=== PATIENT | female | born 1995 | race Caucasian/White ===

== ENCOUNTER 2018-03-30 16:31 | Inpatient (IN) | payer MEDICAID ==
--- NOTE | 2018-03-30 16:55 | CPEKG ---
Heart Rate: 118 RR Interval: 508 P-R Interval: 140 QRSD Interval: 90 QT Interval: 324 QTC Interval: 455 P [place]: 51 QRS [place]: 29 T Wave [place]: 7 EKG Severity - BORDERLINE ECG - EKG Impression: SINUS TACHYCARDIA EKG Impression: BORDERLINE T ABNORMALITIES, ANTERIOR LEADS Electronically Signed By: Bryson Talyor 30-Mar-2018 20:29:41
[2018-03-30] MEDS ORDERED: NS 1,000 ML IV ONE (16:58)
--- NOTE | 2018-03-30 16:58 | EDPHY ---
HPI/HX/ROS/PE/MDM Narrative: CHIEF COMPLAINT: Abdominal pain, constipation HPI: The patient is a 22 y/o female complaining of abdominal pain and constipation onset 3 days ago. She had nausea, decreased appetite, and constipation for 2 days. The constipation improved yesterday after taking Miralax. Today the abdominal pain moved to her upper abdomen. She denies history of abdominal surgery. She also woke up with red, swollen, and painful hands. She denies using new shampoo or lotion. She did take an Adderall this morning as she was concerned about working with her current symptoms. Denies chest pain, heart palpitations, shortness of breath, urinary complaints, fever, numbness, paresthesias, fever. REVIEW OF SYSTEMS: Aside from elements discussed in the HPI, a comprehensive 10-point review of systems was reviewed and is negative. PMH: Denies SOCIAL HISTORY: Employed with [employer], single, lives in [place]. Admits to daily alcohol use. PHYSICAL EXAM: General: Patient is alert, in no acute distress. ENT: Eyes are normal to inspection. ENT inspection normal. Neck: Normal inspection. Full range of motion. Respiratory: No respiratory distress. Breath sounds normal bilaterally. Cardiovascular: Regular rate and rhythm. Strong peripheral pulses. Normal cap refill. Abdomen: Moderate diffuse abdominal tenderness to palpation. There are no peritoneal signs. There are normal bowel sounds. Back: Normal to inspection. No tenderness to palpation. Skin: Bilateral hand erythema involving 3cm of volar wrists, multiple linear scars on arms from cutting. Warm and dry. Extremities: Normal appearance. Full range of motion. Neuro: Oriented x3. Normal motor function. Normal sensory function. ED Course: 1651: EKG was ordered and interpreted by myself as sinus tachycardia with a rate of 118. Please see [email or web address] system for official reading. 0: Patient's abdominal x-ray reveals a small amount of free fluid. Limited abdominal US ordered. 1835: I reviewed patient's labs, elevated lipase noted -will need to be admitted. 1930: Reassessed patient and discussed laboratory and imaging findings. She is comfortable with plan for admission. 1940: Spoke with radiologist who reports that the abdominal US reveals diffuse fatty infiltration of the liver, but there are no acute findings. 1950: Consulted with hospitalist service, Dr. Lake accepts admission of this patient. - Data Points Imaging Results: Imaging Impressions Abdomen X-Ray 03/30/18 16:58 Impression: Nonspecific scattered small air-fluid levels. Query ileus. Abdomen Ultrasound 03/30/18 18:36 Impression: 1. No acute findings in the abdomen. 2. Diffuse fatty infiltration of the liver. Findings discussed with Bryson Taylor M.D., on March 30, 2018 at 1941. Imaging: I viewed and interpreted images myself Laboratory Results: Laboratory Results 03/30/18 17:20 03/30/18 17:20 03/30/18 03/30/18 03/30/18 19:50 17:20 17:20 WBC RBC Hgb Hct MCV MCH MCHC RDW Plt Count MPV Neut % (Auto) Lymph % (Auto) [place] % (Auto) Eos % (Auto) Baso % (Auto) Nucleat RBC Rel Count Absolute Neuts (auto) Absolute Lymphs (auto) Absolute Monos (auto) Absolute Eos (auto) Absolute Basos (auto) Absolute Nucleated RBC Immature Gran % Immature Gran # Sodium 133 mEq/L L mEq/L (135-145) Potassium 3.5 mEq/L mEq/L (3.3-5.0) Chloride 101 mEq/L mEq/L (97-110) Carbon Dioxide 19 mEq/l L mEq/l (22-31) Anion Gap 13 mEq/L mEq/L (8-16) BUN 5 mg/dL L mg/dL (7-23) Creatinine 0.7 mg/dL mg/dL (0.6-1.0) Estimated GFR > 60 Glucose 101 mg/dL H mg/dL (70-100) Calcium 10.1 mg/dL mg/dL (8.5-10.4) Total Bilirubin 0.8 mg/dL mg/dL (0.1-1.4) Conjugated Bilirubin 0.4 mg/dL mg/dL (0.0-0.5) Unconjugated Bilirubin 0.4 mg/dL mg/dL (0.0-1.1) AST 32 IU/L IU/L (14-46) ALT 45 IU/L IU/L (9-52) Alkaline Phosphatase 109 IU/L IU/L (38-126) Total Protein 6.7 g/dL g/dL (6.3-8.2) Albumin 3.7 g/dL g/dL (3.5-5.0) Lipase 9701 IU/L H IU/L (23-300) Beta HCG, Qual NEGATIVE Urine Color YELLOW Urine Appearance CLEAR Urine pH 6.0 (5.0-7.5) Ur Specific [place] 1.002 (1.002-1.030) Urine Protein NEGATIVE (NEGATIVE) Urine Ketones NEGATIVE (NEGATIVE) Urine Blood NEGATIVE (NEGATIVE) Urine Nitrate NEGATIVE (NEGATIVE) Urine Bilirubin NEGATIVE (NEGATIVE) Urine Urobilinogen NEGATIVE EU EU (0.2-1.0) Ur Leukocyte Esterase NEGATIVE (NEGATIVE) Urine Glucose NEGATIVE (NEGATIVE) 03/30/18 17:20 WBC 13.32 10^3/uL H 10^3/uL (3.80-9.50) RBC 5.17 10^6/uL 10^6/uL (4.18-5.33) Hgb 15.0 g/dL g/dL (12.6-16.3) Hct 43.1 % % (38.0-47.0) MCV 83.4 fL fL (81.5-99.8) MCH 29.0 pg pg (27.9-34.1) MCHC 34.8 g/dL g/dL (32.4-36.7) RDW 13.5 % % (11.5-15.2) Plt Count 212 10^3/uL 10^3/uL (150-400) MPV 11.7 fL fL (8.7-11.7) Neut % (Auto) 82.5 % H % (39.3-74.2) Lymph % (Auto) 6.8 % L % (15.0-45.0) [place] % (Auto) 6.4 % % (4.5-13.0) Eos % (Auto) 3.1 % % (0.6-7.6) Baso % (Auto) 0.6 % % (0.3-1.7) Nucleat RBC Rel Count 0.0 % % (0.0-0.2) Absolute Neuts (auto) 11.00 10^3/uL H 10^3/uL (1.70-6.50) Absolute Lymphs (auto) 0.90 10^3/uL L 10^3/uL (1.00-3.00) Absolute Monos (auto) 0.85 10^3/uL H 10^3/uL (0.30-0.80) Absolute Eos (auto) 0.41 10^3/uL H 10^3/uL (0.03-0.40) Absolute Basos (auto) 0.08 10^3/uL 10^3/uL (0.02-0.10) Absolute Nucleated RBC 0.00 10^3/uL 10^3/uL (0-0.01) Immature Gran % 0.6 % % (0.0-1.1) Immature Gran # 0.08 10^3/uL 10^3/uL (0.00-0.10) Sodium Potassium Chloride Carbon Dioxide Anion Gap BUN Creatinine Estimated GFR Glucose Calcium Total Bilirubin Conjugated Bilirubin Unconjugated Bilirubin AST ALT Alkaline Phosphatase Total Protein Albumin Lipase Beta HCG, Qual Urine Color Urine Appearance Urine pH Ur Specific [place] Urine Protein Urine Ketones Urine Blood Urine Nitrate Urine Bilirubin Urine Urobilinogen Ur Leukocyte Esterase Urine Glucose Medications Given: Discontinued Medications Sodium Chloride (Ns) 1,000 mls @ 0 mls/hr IV EDNOW ONE; Wide Open PRN Reason: Protocol Stop: 03/30/18 16:59 Last Admin: 03/30/18 17:53 Dose: 1,000 mls General Time Seen by Provider: 03/30/18 16:48 Initial Vital Signs: Initial Vital Signs Temperature (C) 36.5 C 03/30/18 16:42 Heart Rate 266 H 03/30/18 16:42 Respiratory Rate 20 03/30/18 16:42 Blood Pressure 113/80 03/30/18 16:42 O2 Sat (%) 99 03/30/18 16:42 O2 Delivery Mode Room Air Allergies/Adverse Reactions: No Known Allergies Allergy (Verified 03/30/18 16:41) Home Medications: Medication Instructions Recorded NK [No Known Home Meds] 03/30/18 Departure - Departure Disposition: [facility] Inpatient Acute Clinical Impression: Rash Abdominal pain Qualifiers: Abdominal location: generalized Qualified Code(s): R10.84 - Generalized abdominal pain Pancreatitis Qualifiers: Chronicity: acute Pancreatitis type: other Acute pancreatitis complication: unspecified Qualified Code(s): K85.80 - Other acute pancreatitis without necrosis or infection Condition: Fair Report Scribed for: Bryson Taylor Report Scribed by: Kimber Grewal Date of Report: 03/30/18 Time of Report: 16:57 Physician Review and Approval Statement: Portions of this note were transcribed by an ED scribe. I personally performed the history, physical exam, and medical decision making; and confirm the accuracy of the information in the transcribed note.
[2018-03-30 17:30] LABS: PLATELET COUNT 212 10^3/uL (150-400)
[2018-03-30] MEDS ORDERED: KETOROLAC 15 MG/1 ML SDV IVP ONE ×2 (21:01→21:02)
[2018-03-30] MEDS ORDERED: ONDANSETRON 4 MG/2 ML VIAL IVP PRN (22:36)
[2018-03-30] MEDS ORDERED: ONDANSETRON DISINTEGRATING 4 MG TAB PO PRN (22:36)
[2018-03-30] MEDS: NS W/ 20 KCl/L 1,000 ML IV SCH (23:27)
[2018-03-30] MEDS: oxyCODONE IR 5 MG TAB PO PRN (23:38)
--- NOTE | 2018-03-31 01:17 | PDGENHP ---
History and Physical - Chief Complaint Abdominal pain - History of Present Illness 22 yo F w/ no significant PMHx p/w abdominal pain. Patient reports epi-gastric pain and nausea for 3 days prior to admission. During this period she has been unable to tolerate PO intake. The pain worsened significantly today so she came to the ED. Patient seems hesitant to reveal the extent of her alcohol use. She tells me she drinks daily and will only quantify it as "too much". Abdominal U/ S notable only for fatty liver. Noted elevated lipase patient is being admitted for treatment of alcoholic pancreatitis. History Information - Allergies/Home Medication List Allergies/Adverse Reactions: No Known Allergies Allergy (Verified 03/30/18 16:41) Home Medications: NK [No Known Home Meds] 03/30/18 [Last Taken Unknown] I have personally reviewed and updated: family history, medical history - Past Medical History no pertinent PMH - Surgical History Reports: no pertinent surgical hx - Family History Additional family history: Denies family hx of pancreatitis - Social History Smoking Status: Current every day smoker Review of Systems Review of Systems: ROS: 10pt was reviewed & negative except for what was stated in HPI & below Physical Exam Physical Exam: Temp Pulse Resp BP Pulse Ox 36.8 C 111 H 16 120/80 93 03/30/18 23:45 03/31/18 00:53 03/31/18 00:53 03/31/18 00:53 03/31/18 00:53 Constitutional: no apparent distress, not in pain Eyes: PERRL, EOMI Ears, Nose, Mouth, Throat: moist mucous membranes, no oral mucosal ulcers Cardiovascular: regular rate and rhythym, no murmur, rub, or gallop Respiratory: no respiratory distress, clear to auscultation Gastrointestinal: normoactive bowel sounds, tenderness (Epi-gastric), No guarding, No rebound, No distension Skin: warm, normal color Musculoskeletal: full muscle strength, no muscle tenderness Neurologic: AAOx3, CN II-XII Intact Psychiatric: interacting appropriately, not anxious Lab Data & Imaging Review 03/30/18 17:20 03/30/18 17:20 WBC 13.32 10^3/uL (3.80-9.50) H 03/30/18 17:20 RBC 5.17 10^6/uL (4.18-5.33) 03/30/18 17:20 Hgb 15.0 g/dL (12.6-16.3) 03/30/18 17:20 Hct 43.1 % (38.0-47.0) 03/30/18 17:20 MCV 83.4 fL (81.5-99.8) 03/30/18 17:20 MCH 29.0 pg (27.9-34.1) 03/30/18 17:20 MCHC 34.8 g/dL (32.4-36.7) 03/30/18 17:20 RDW 13.5 % (11.5-15.2) 03/30/18 17:20 Plt Count 212 10^3/uL (150-400) 03/30/18 17:20 MPV 11.7 fL (8.7-11.7) 03/30/18 17:20 Neut % (Auto) 82.5 % (39.3-74.2) H 03/30/18 17:20 Lymph % (Auto) 6.8 % (15.0-45.0) L 03/30/18 17:20 [place] % (Auto) 6.4 % (4.5-13.0) 03/30/18 17:20 Eos % (Auto) 3.1 % (0.6-7.6) 03/30/18 17:20 Baso % (Auto) 0.6 % (0.3-1.7) 03/30/18 17:20 Nucleat RBC Rel Count 0.0 % (0.0-0.2) 03/30/18 17:20 Absolute Neuts (auto) 11.00 10^3/uL (1.70-6.50) H 03/30/18 17:20 Absolute Lymphs (auto) 0.90 10^3/uL (1.00-3.00) L 03/30/18 17:20 Absolute Monos (auto) 0.85 10^3/uL (0.30-0.80) H 03/30/18 17:20 Absolute Eos (auto) 0.41 10^3/uL (0.03-0.40) H 03/30/18 17:20 Absolute Basos (auto) 0.08 10^3/uL (0.02-0.10) 03/30/18 17:20 Absolute Nucleated RBC 0.00 10^3/uL (0-0.01) 03/30/18 17:20 Immature Gran % 0.6 % (0.0-1.1) 03/30/18 17:20 Immature Gran # 0.08 10^3/uL (0.00-0.10) 03/30/18 17:20 Sodium 133 mEq/L (135-145) L 03/30/18 17:20 Potassium 3.5 mEq/L (3.3-5.0) 03/30/18 17:20 Chloride 101 mEq/L (97-110) 03/30/18 17:20 Carbon Dioxide 19 mEq/l (22-31) L 03/30/18 17:20 Anion Gap 13 mEq/L (8-16) 03/30/18 17:20 BUN 5 mg/dL (7-23) L 03/30/18 17:20 Creatinine 0.7 mg/dL (0.6-1.0) 03/30/18 17:20 Estimated GFR > 60 03/30/18 17:20 Glucose 101 mg/dL (70-100) H 03/30/18 17:20 Calcium 10.1 mg/dL (8.5-10.4) 03/30/18 17:20 Total Bilirubin 0.8 mg/dL (0.1-1.4) 03/30/18 17:20 Conjugated Bilirubin 0.4 mg/dL (0.0-0.5) 03/30/18 17:20 Unconjugated Bilirubin 0.4 mg/dL (0.0-1.1) 03/30/18 17:20 AST 32 IU/L (14-46) 03/30/18 17:20 ALT 45 IU/L (9-52) 03/30/18 17:20 Alkaline Phosphatase 109 IU/L (38-126) 03/30/18 17:20 Total Protein 6.7 g/dL (6.3-8.2) 03/30/18 17:20 Albumin 3.7 g/dL (3.5-5.0) 03/30/18 17:20 Lipase 9701 IU/L (23-300) H 03/30/18 17:20 Beta HCG, Qual NEGATIVE 03/30/18 17:20 Urine Color YELLOW 03/30/18 19:50 Urine Appearance CLEAR 03/30/18 19:50 Urine pH 6.0 (5.0-7.5) 03/30/18 19:50 Ur Specific [place] 1.002 (1.002-1.030) 03/30/18 19:50 Urine Protein NEGATIVE (NEGATIVE) 03/30/18 19:50 Urine Ketones NEGATIVE (NEGATIVE) 03/30/18 19:50 Urine Blood NEGATIVE (NEGATIVE) 03/30/18 19:50 Urine Nitrate NEGATIVE (NEGATIVE) 03/30/18 19:50 Urine Bilirubin NEGATIVE (NEGATIVE) 03/30/18 19:50 Urine Urobilinogen NEGATIVE EU (0.2-1.0) 03/30/18 19:50 Ur Leukocyte Esterase NEGATIVE (NEGATIVE) 03/30/18 19:50 Urine Glucose NEGATIVE (NEGATIVE) 03/30/18 19:50 Imaging Review: Imaging Impressions Abdomen X-Ray 03/30/18 16:58 Impression: Nonspecific scattered small air-fluid levels. Query ileus. Abdomen Ultrasound 03/30/18 18:36 Impression: 1. No acute findings in the abdomen. 2. Diffuse fatty infiltration of the liver. Findings discussed with Bryson Taylor M.D., on March 30, 2018 at 1941. Visualized and Interpreted EKG results: Yes EKG Interpretation: Positive for: normal sinsus rhythm, NS ST wave abnormalities , other (Sinus tach) Assessment & Plan Assessment: 22 yo F p/w ETOH pancreatitis. Plan: 1. Acute pancreatitis - 2/2 ETOH; abdominal U/S notable for fatty liver. Lipase >9000 on admission. - Admit for observation - NPO, ADAT - mIVF, pain control, anti-emetics - Counseled ETOH cessation - Discussed case w/ Dr. Lake Diet - NPO, ADAT Code - Full Ppx - Low risk Dispo - Admit under observation status
[2018-03-31] MEDS: oxyCODONE IR 5 MG TAB PO PRN ×3 (03:29→20:28)
[2018-03-31 05:24] LABS: PLATELET COUNT 169 10^3/uL (150-400)
[2018-03-31] MEDS: NS W/ 20 KCl/L 1,000 ML IV SCH ×3 (06:44→21:30)
--- NOTE | 2018-03-31 16:40 | HOSPPROG ---
Hospitalist Progress Note Assessment/Plan: Assessment: 22-year-old female presents with acute alcohol induced pancreatitis complicated by acute ileus Plan: 1. Acute pancreatitis. Alcohol induced, evidenced by lipase of 9700, midepigastric tenderness, alcohol abuse, tachycardia -counseled patient regarding the etiology pancreatitis, future dietary recommendations, recommendation for complete alcohol cessation -continue IV normal saline, increase to 150cc an hour given that she continues to experience tachycardia -currently attempting to manage pain with oxycodone, nausea with antiemetics -tolerated clear liquid diet, advanced to light diet and gauge effect 2. Alcohol abuse. Chronic, resulting in above, recommend complete cessation -ultrasound demonstrating fatty liver disease, likely secondary to chronic alcohol abuse -no evidence of alcohol withdrawal -social work consultation appreciated, patient desires sobriety 3. Acute ileus. Present on abdominal x-ray, personally interpreted, most likely secondary to localized inflammation from her pancreatitis -continue monitor for flatus, bowel movements -advanced diet carefully as above 4. Acute hyponatremia. Secondary to reduced renal perfusion in setting of poor oral intake, received normal saline, resolved 5. Acute metabolic acidosis. Serum bicarbonate level 18, most likely secondary to vomiting, continue to monitor serum bicarbonate level and continue IV fluids 6. Suspected underlying mood and/or personality disorder. Patient with evidence of bilateral cut robert on upper extremities and lower extremities, patient endorses that these have been mood related in the past -she certainly rib could benefit from an outpatient mental health provider, recommend the patient establish mental health care through referral from her primary care office Diet. Clears, advanced to light diet Prophylaxis. Low risk patient, SCDs Code. Full Disposition. Anticipated discharge is uncertain this time, upgraded to inpatient admission status for reasonable medical necessity including failure to respond to outpatient management of acute pancreatitis, requiring ongoing IV fluids and careful advancement of diet in the setting of ongoing tachycardia, ongoing metabolic acidosis. Will establish patient with primary care provider at [facility]. Subjective: Patient reports some ongoing midepigastric pain, no bowel movement, thirsty Objective: Vital Signs Temp Pulse Resp BP Pulse Ox 35.9 C L 115 H 16 131/85 H 95 03/31/18 13:17 03/31/18 13:17 03/31/18 13:17 03/31/18 13:17 03/31/18 13:17 Laboratory Results 03/31/18 05:10 03/31/18 05:10 03/30/18 03/31/18 04/01/18 05:59 05:59 05:59 Intake Total 900 Balance 900 - Time Spent With Patient Time Spent with Patient: greater than 35 minutes Time Spent with Patient: Greater than 35 minutes spent on this patients care, greater than 50% of time spent counseling, educating, and coordinating care regarding the above mentioned plan. - Physical Exam Constitutional: no apparent distress, uncomfortable, No not in pain (Mild, level 3), No chronically ill appearing Cardiovascular: tachycardia, No systolic murmur, No irregularly irregular, No edema Respiratory: no respiratory distress, no rales or rhonchi, clear to auscultation Gastrointestinal: tenderness (Midepigastric), guarding (Voluntary in the mid epigastric area), distension (Mild), No normoactive bowel sounds (Hypoactive bowel sounds) Skin: warm, other (Healed cutting robert bilateral forearms) Neurologic: AAOx3, other (No upper extremity tremulousness), No asterixes Psychiatric: interacting appropriately, not anxious, not encephalopathic, thought process linear ICD10 Worksheet Patient Problems: Problems Problem Status Onset Rash Acute Abdominal pain Acute Pancreatitis Acute
--- NOTE | 2018-03-31 16:47 | ASMTCMCOM ---
CM Note CM Note Notes: Sw requested for 22 y/o admitted for ETOH-related pancreatitis. Met with pt to discuss her drinking and offer resources and support. Pt stated her mother is very supportive toward her quitting. She is hoping that Sw can meet pt's mother tomorrow. She stated that her mother is hoping to set pt up with a therapist. Discussed AA with pt and she would consider it. She feels at this point that she never wants to drink again. However, she is aware that it will be difficult when gets back to her friends and habits. Gave pt the packet of area resources for alcoholism and helpful articles about drinking. Will meet with pt again tomorrow to set her up with a PCP and talk with her mother. Date Signed: 03/31/2018 04:46 PM Electronically Signed By:Lina Naylor LCSW
--- NOTE | 2018-03-31 18:46 | PDMN ---
Medical Necessity Medical necessity: change to IP; los>2mn for acute pancreatitis, etoh induced, acute ileus, hyponatremia, and metabolic acidosis; requires IVF, and careful advancement of diet; per order and progress note 03/31/18
[2018-04-01] MEDS: oxyCODONE IR 5 MG TAB PO PRN ×5 (00:12→22:58)
[2018-04-01] MEDS: NS W/ 20 KCl/L 1,000 ML IV SCH ×4 (04:02→21:34)
[2018-04-01] MEDS: LORazepam 0.5 MG TAB PO PRN (14:22)
--- NOTE | 2018-04-01 16:25 | HOSPPROG ---
Hospitalist Progress Note Assessment/Plan: Assessment: 22-year-old female presents with acute alcohol induced pancreatitis complicated by acute ileus Plan: 1. Acute pancreatitis. Alcohol induced, evidenced by lipase of 9700, midepigastric tenderness, alcohol abuse, tachycardia persists 120s -continue IV normal saline, increase to 200cc an hour given that she continues to experience tachycardia and likely has an ongoing pro-inflammatory component/ unresolved pancreatitis -currently attempting to manage pain with oxycodone, nausea with antiemetics -discomfort/bloating w/ PO intake, de-escalating diet if needed but can continue to attempt light if hungry 2. Alcohol abuse. Chronic, resulting in above, recommend complete cessation, no e/o withdraw -ultrasound demonstrating fatty liver disease, likely secondary to chronic alcohol abuse -no evidence of alcohol withdrawal -social work consultation appreciated, patient desires sobriety 3. Acute ileus. Present on abdominal x-ray, personally interpreted, most likely secondary to localized inflammation from her pancreatitis -advanced diet carefully as above 4. Acute hyponatremia. Secondary to reduced renal perfusion in setting of poor oral intake, received normal saline, resolved 5. Acute metabolic acidosis. Serum bicarbonate level 18, most likely secondary to vomiting, continue to monitor serum bicarbonate level and continue IV fluids -recheck in AM 6. Suspected underlying mood and/or personality disorder. Patient with evidence of bilateral cut robert on upper extremities and lower extremities, patient endorses that these have been mood related in the past -she certainly could benefit from an outpatient mental health provider, recommend the patient establish mental health care through referral from her primary care office Diet. Clears, advanced to light diet Prophylaxis. Low risk patient, SCDs Code. Full Disposition. Anticipated discharge is uncertain, possibly 04/02, pending clinical stabilization of above. Will establish patient with primary care provider at [facility]. Subjective: patient reports bloating w/ PO intake, intermittent pain Objective: Vital Signs Temp Pulse Resp BP Pulse Ox 37.4 C 122 H 18 143/91 H 98 04/01/18 13:18 04/01/18 15:21 04/01/18 15:21 04/01/18 15:21 04/01/18 15:21 Laboratory Results 03/31/18 05:10 03/31/18 05:10 03/31/18 04/01/18 04/02/18 05:59 05:59 05:59 Intake Total 900 Balance 900 - Physical Exam Constitutional: no apparent distress, appears nourished, uncomfortable, No not in pain (mild mid-epigastric) Cardiovascular: tachycardia, No systolic murmur, No irregularly irregular, No edema Respiratory: no respiratory distress, no rales or rhonchi, clear to auscultation Gastrointestinal: normoactive bowel sounds, tenderness (mid-epigastric), distension (mild), No guarding Skin: other (healed cut robert bilat UE) Neurologic: AAOx3, other (no tremulousness), No asterixes Psychiatric: interacting appropriately, not anxious, not encephalopathic, thought process linear ICD10 Worksheet Patient Problems: Problems Problem Status Onset Rash Acute Abdominal pain Acute Pancreatitis Acute
--- NOTE | 2018-04-01 17:04 | ASMTCMCOM ---
CM Note CM Note Notes: Met with pt again this pm. Wanted to make sure pt has made an appt with a PCP. Pt stated that she has an appt tomorrow at [facility]. Encouraged her to ask for help finding a mental health counselor. Will also contact [facility] manager case management for assistance as well. Date Signed: 04/01/2018 05:03 PM Electronically Signed By:Lina Naylor LCSW
[2018-04-02] MEDS: NS W/ 20 KCl/L 1,000 ML IV SCH ×4 (02:33→20:47)
[2018-04-02] MEDS: oxyCODONE IR 5 MG TAB PO PRN ×4 (04:52→22:56)
[2018-04-02] MEDS ORDERED: IOPAMIDOL (ISOVUE 370) 100 ML BTL IV ONE (12:48)
[2018-04-02] MEDS: ACETAMINOPHEN 325 MG TAB PO PRN (13:13)
[2018-04-02 14:26] LABS: PLATELET COUNT 214 10^3/uL (150-400)
--- NOTE | 2018-04-02 17:06 | HOSPPROG ---
Hospitalist Progress Note Assessment/Plan: Assessment: 22-year-old female presents with acute alcohol induced pancreatitis complicated by acute ileus and SIRS Plan: 1. Acute pancreatitis. Alcohol induced, evidenced by lipase of 9700, midepigastric tenderness, alcohol abuse -continue IV normal saline, decrease to 100/hr given development of pleural effusions -currently attempting to manage pain with oxycodone, nausea with antiemetics -ongoing tachy/leukocytosis and e/o pancreatitis on CT, keep diet light/liquids , advance only if hungry -counseled patient/mother that dietary tolerance and nutrition moving forward will be assessed in outpt setting after this episode, and patient does not currently demonstrate any indicate that she needs creon -check A1c to ensure no development of DM 2. Alcohol abuse. Chronic, resulting in above, recommend complete cessation, no e/o withdraw -ultrasound demonstrating fatty liver disease, likely secondary to chronic alcohol abuse -no evidence of alcohol withdrawal -social work consultation appreciated, patient desires sobriety 3. Acute ileus. Resolved 4. Acute hyponatremia. Secondary to reduced renal perfusion in setting of poor oral intake, received normal saline, monitoring 5. Acute metabolic acidosis. Serum bicarbonate level 18, most likely secondary to vomiting, continue to monitor serum bicarbonate level and continue IV fluids 6. Suspected underlying mood and/or personality disorder. Patient with evidence of bilateral cut robert on upper extremities and lower extremities, patient endorses that these have been mood related in the past -she certainly could benefit from an outpatient mental health provider, recommend the patient establish mental health care through referral from her primary care office 7. SIRS. Acute, new problem, further w/u indicated. Fever, ongoing tachycardia, leukocytosis -likely 2/2 ongoing inflammation from pancreatitis -dimer elevated, get CTA to ensure no PE -get CT abd to ensure no necrotizing pancreatitis -get BCx -hold on Abx, cont IVF 8. Pleural effusion. Acute, moderate on L on CT (personally interpreted), 2/2 IVF -reduce IVF and start IS, encourage mobility Diet. Clears, advanced to light diet Prophylaxis. Low risk patient, SCDs Code. Full Disposition. Anticipated discharge is uncertain, possibly 04/03, pending clinical stabilization of above. Will establish patient with primary care provider at [facility]. Subjective: ongoing discomfort w/ PO intake, mild mid-epigastric pain Objective: Vital Signs Temp Pulse Resp BP Pulse Ox 37.1 C 122 H 18 136/90 H 94 04/02/18 16:00 04/02/18 16:00 04/02/18 16:00 04/02/18 16:00 04/02/18 16:00 Laboratory Results 04/02/18 14:10 04/02/18 14:10 04/01/18 04/02/18 04/03/18 05:59 05:59 05:59 Intake Total 2400 Balance 2400 - Physical Exam Constitutional: no apparent distress, appears nourished, uncomfortable, No not in pain Cardiovascular: tachycardia, No systolic murmur, No irregularly irregular, No edema Respiratory: reduced air movement (L base on inspiration), No expiratory wheeze , No inspiratory crackles, No bronchial breath sounds, No respiratory distress Gastrointestinal: normoactive bowel sounds, tenderness (mid-epigastric), No guarding, No distension Skin: other (healed cut robert bilat UE) Neurologic: AAOx3 Psychiatric: interacting appropriately, not anxious, not encephalopathic, thought process linear ICD10 Worksheet Patient Problems: Problems Problem Status Onset Rash Acute Abdominal pain Acute Pancreatitis Acute
[2018-04-03] MEDS: oxyCODONE IR 5 MG TAB PO PRN ×2 (03:52→11:01)
[2018-04-03 04:19] LABS: PLATELET COUNT 246 10^3/uL (150-400)
[2018-04-03] MEDS ORDERED: PROMETHAZINE HCL 25 MG/ML INJ IVP PRN (10:47)
--- NOTE | 2018-04-03 17:06 | HOSPPROG ---
Hospitalist Progress Note Assessment/Plan: * Severe Etoh pancreatitis -keep PO minimal until improved * SIRS -due to pancreatitis * Obesity * Fatty liver disease due to obesity and Etoh * Anemia -follow Subjective: No hunger, still with intermittent pain crisis Objective: Vital Signs Temp Pulse Resp BP Pulse Ox 37.4 C 107 H 18 130/98 H 95 04/03/18 15:17 04/03/18 15:17 04/03/18 15:17 04/03/18 15:17 04/03/18 15:17 Laboratory Results 04/03/18 04:00 04/03/18 04:00 04/02/18 04/03/18 04/04/18 05:59 05:59 05:59 Intake Total [address] chest/abd/pelvis -diffuse pancreatic inflammation, no PE AXR viewed, my personal interpretation is - air fluid levels c/w ileus - Physical Exam Constitutional: no apparent distress, appears nourished, not in pain Cardiovascular: regular rate and rhythym, no murmur, rub, or gallop Respiratory: no respiratory distress, no rales or rhonchi, clear to auscultation Gastrointestinal: normoactive bowel sounds, soft, non-tender abdomen, no palpable masses Skin: no rashes or abrasions, no fluctuance, no induration Neurologic: AAOx3, sensation intact bilaterally Psychiatric: interacting appropriately, not anxious, not encephalopathic, thought process linear ICD10 Worksheet Patient Problems: Problems Problem Status Onset Abdominal pain Acute Pancreatitis Acute Rash Acute
[2018-04-03] MEDS: HYDROmorphONE/DILAUDID 1 MG/ML INJ IVP PRN ×2 (17:51→19:56)
[2018-04-03] MEDS: NS W/ 20 KCl/L 1,000 ML IV SCH (19:51)
[2018-04-03] MEDS: ACETAMINOPHEN 325 MG TAB PO PRN (19:51)
[2018-04-04] MEDS: HYDROmorphONE/DILAUDID 1 MG/ML INJ IVP PRN ×9 (00:12→23:24)
[2018-04-04 05:17] LABS: PLATELET COUNT 311 10^3/uL (150-400)
[2018-04-04] MEDS: NS W/ 20 KCl/L 1,000 ML IV SCH ×2 (05:19→15:14)
--- NOTE | 2018-04-04 13:30 | HOSPPROG ---
Hospitalist Progress Note Assessment/Plan: * Severe Etoh pancreatitis -keep PO minimal until improved * SIRS -due to pancreatitis * Obesity * Fatty liver disease due to obesity and Etoh * Anemia -follow Subjective: Still with pain and no hunger Objective: Vital Signs Temp Pulse Resp BP Pulse Ox 36.9 C 112 H 20 130/89 H 94 04/04/18 10:53 04/04/18 10:53 04/04/18 10:53 04/04/18 10:53 04/04/18 10:53 Laboratory Results 04/04/18 04:24 04/04/18 04:24 04/03/18 04/04/18 04/05/18 05:59 05:59 05:59 Intake Total 3100 507 Balance 3100 507 - Physical Exam Constitutional: no apparent distress, appears nourished, not in pain Cardiovascular: regular rate and rhythym, no murmur, rub, or gallop Respiratory: no respiratory distress, no rales or rhonchi, clear to auscultation Gastrointestinal: normoactive bowel sounds, soft, non-tender abdomen, no palpable masses Skin: no rashes or abrasions, no fluctuance, no induration Neurologic: AAOx3, sensation intact bilaterally Psychiatric: interacting appropriately, not anxious, not encephalopathic, thought process linear ICD10 Worksheet Patient Problems: Problems Problem Status Onset Abdominal pain Acute Pancreatitis Acute Rash Acute
--- NOTE | 2018-04-04 14:46 | ASMTCMCOM ---
CM Note CM Note Notes: PO limited due to acute pancreatitis. Patient has been given ETOH res. Missed her appt at [facility]-may need to schedule another Thursday. Date Signed: 04/04/2018 02:46 PM Electronically Signed By:Hermelinda Guzmán LCSW
[2018-04-05] MEDS: HYDROmorphONE/DILAUDID 1 MG/ML INJ IVP PRN ×7 (02:46→21:54)
[2018-04-05 05:43] LABS: PLATELET COUNT 399 10^3/uL (150-400)
[2018-04-05] MEDS: NS W/ 20 KCl/L 1,000 ML IV SCH ×2 (07:56→19:06)
--- NOTE | 2018-04-05 14:23 | HOSPPROG ---
Hospitalist Progress Note Assessment/Plan: * Severe Etoh pancreatitis -keep PO minimal until improved -still with lots of pain - IV Dilaudid * SIRS -due to pancreatitis -slow improvement * Obesity * Fatty liver disease due to obesity and Etoh * Anemia -follow Subjective: Still with lots of pain, no hunger Objective: Vital Signs Temp Pulse Resp BP Pulse Ox 36.9 C 102 H 20 127/86 H 96 04/05/18 07:43 04/05/18 07:43 04/05/18 07:43 04/05/18 07:43 04/05/18 07:43 Laboratory Results 04/05/18 04:48 04/04/18 04:24 04/04/18 04/05/18 04/06/18 05:59 05:59 05:59 Intake Total 507 1200 Balance 507 1200 - Physical Exam Constitutional: no apparent distress, appears nourished, not in pain Cardiovascular: regular rate and rhythym, no murmur, rub, or gallop Respiratory: no respiratory distress, no rales or rhonchi, clear to auscultation Gastrointestinal: normoactive bowel sounds, soft, non-tender abdomen, no palpable masses Skin: no rashes or abrasions, no fluctuance, no induration Neurologic: AAOx3, sensation intact bilaterally Psychiatric: interacting appropriately, not anxious, not encephalopathic, thought process linear ICD10 Worksheet Patient Problems: Problems Problem Status Onset Abdominal pain Acute Pancreatitis Acute Rash Acute
--- NOTE | 2018-04-05 16:25 | ASMTCMCOM ---
CM Note CM Note Notes: Spoke with patient's nurse. Patient was sleeping when I went to visit. Will return tomorrow to set up appointment with Daniel Teague for patient follow up. CM will follow. Date Signed: 04/05/2018 04:24 PM Electronically Signed By:Ale Ray LCSW
--- NOTE | 2018-04-06 22:31 | ASMTCMCOM ---
CM Note CM Note Notes: Spoke with patient and her mother Milvia. Both confirm they have been given resources. Patient's mother was encouraged to get involved with Avelino Waller to learn how to support her daughter. CM to make an appointment with Daniel Teague for patient to follow up with a PCP on a regular basis. Patient states she prefers a male Dr. Patient states she plans to start with an individual counselor as she has a difficult time with groups. CM will follow. Date Signed: 04/06/2018 03:31 PM Electronically Signed By:Ale Ray LCSW
[2018-04-07 05:45] LABS: PLATELET COUNT 539 10^3/uL (150-400)
[2018-04-07] MEDS: HYDROmorphONE/DILAUDID 1 MG/ML INJ IVP PRN ×3 (07:43→22:16)
--- NOTE | 2018-04-07 09:39 | HOSPPROG ---
Hospitalist Progress Note Assessment/Plan: * Severe Etoh pancreatitis -very slow improvement - advance to clears -IV Dilaudid - back off on IV narcotics as diet advances * SIRS -due to pancreatitis -slow improvement - finally not tachycardic this am! * Obesity * Fatty liver disease due to obesity and Etoh * Anemia -follow Subjective: Feels better, still with pain. Objective: Vital Signs Temp Pulse Resp BP Pulse Ox 36.9 C 95 16 127/88 H 94 04/07/18 07:38 04/07/18 07:38 04/07/18 07:38 04/07/18 07:38 04/07/18 07:38 Laboratory Results 04/07/18 04:57 04/04/18 04:24 04/06/18 04/07/18 04/08/18 05:59 05:59 05:59 Intake Total 1525 5735 Balance 5750 9242 - Physical Exam Constitutional: no apparent distress, appears nourished, not in pain Cardiovascular: regular rate and rhythym, no murmur, rub, or gallop Respiratory: no respiratory distress, no rales or rhonchi, clear to auscultation Gastrointestinal: normoactive bowel sounds, soft, non-tender abdomen, no palpable masses Skin: no rashes or abrasions, no fluctuance, no induration Neurologic: AAOx3, sensation intact bilaterally Psychiatric: interacting appropriately, not anxious, not encephalopathic, thought process linear ICD10 Worksheet Patient Problems: Problems Problem Status Onset Abdominal pain Acute Pancreatitis Acute Rash Acute
[2018-04-07] MEDS: NS W/ 20 KCl/L 1,000 ML IV SCH (16:10)
[2018-04-08] MEDS: HYDROmorphONE/DILAUDID 1 MG/ML INJ IVP PRN (00:25)
[2018-04-08] MEDS: NS W/ 20 KCl/L 1,000 ML IV SCH ×2 (00:29→10:23)
--- NOTE | 2018-04-08 15:41 | HOSPPROG ---
Hospitalist Progress Note Assessment/Plan: * Severe Etoh pancreatitis -very slow improvement - advance diet -DC IV Dilaudid * SIRS -due to pancreatitis -slow improvement - finally not tachycardic * Obesity * Fatty liver disease due to obesity and Etoh * Anemia -follow Subjective: Tolerating clears, but still some pain. Confused as to whether she is hungry or not. Afraid to eat as worried pain will worsen Objective: Vital Signs Temp Pulse Resp BP Pulse Ox 36.6 C 84 16 123/88 H 96 04/08/18 08:00 04/08/18 08:00 04/08/18 08:00 04/08/18 08:00 04/08/18 08:00 Microbiology 04/02/18 14:30 Blood Culture - Final Blood 04/02/18 14:10 Blood Culture - Final Blood Laboratory Results 04/07/18 04:57 04/04/18 04:24 04/07/18 04/08/18 04/09/18 05:59 05:59 05:59 Intake Total 2735 1314 Balance 2735 1314 - Physical Exam Constitutional: no apparent distress, appears nourished, not in pain Cardiovascular: regular rate and rhythym, no murmur, rub, or gallop Respiratory: no respiratory distress, no rales or rhonchi, clear to auscultation Gastrointestinal: normoactive bowel sounds, soft, non-tender abdomen, no palpable masses Skin: no rashes or abrasions, no fluctuance, no induration Neurologic: AAOx3, sensation intact bilaterally Psychiatric: interacting appropriately, not anxious, not encephalopathic, thought process linear ICD10 Worksheet Patient Problems: Problems Problem Status Onset Abdominal pain Acute Pancreatitis Acute Rash Acute
[2018-04-08] MEDS: LORazepam 0.5 MG TAB PO PRN (23:57)
[2018-04-09 05:32] LABS: PLATELET COUNT 706 10^3/uL (150-400)
--- NOTE | 2018-04-09 08:19 | HOSPPROG ---
Hospitalist Progress Note Assessment/Plan: #Severe Etoh pancreatitis #Hypovolemic hyponatremia Objective: Vital Signs Temp Pulse Resp BP Pulse Ox 36.6 C 77 14 132/93 H 94 04/08/18 22:55 04/08/18 22:55 04/08/18 22:55 04/08/18 22:55 04/08/18 22:55 Laboratory Results 04/09/18 04:28 04/04/18 04:24 04/08/18 04/09/18 04/10/18 05:59 05:59 05:59 Intake Total 1314 Balance 1314 ICD10 Worksheet Patient Problems: Problems Problem Status Onset Abdominal pain Acute Pancreatitis Acute Rash Acute
[2018-04-09 08:53] VITALS: BP 119/82
--- NOTE | 2018-04-09 10:08 | ASMTCMCOM ---
CM Note CM Note Notes: Spoke w/RN and , pt will dc home today w/support of mother. Her mother has made an appointment with [facility] in [place] for a follow up. CM available for any changes. DC Plan: Independent Date Signed: 04/09/2018 10:08 AM Electronically Signed By:Carlo Watters RN
--- NOTE | 2018-04-09 10:09 | ASMTLACE ---
[facility] Length of stay for Answers: 7-13 days current admission Acuity / Level of Answers: Yes Care: Did the patient have an inpatient admission? Comorbidities - select Answers: Other Notes: pancreatits all that apply # of Emergency department Answers: 1-2 visits in the last 6 months Social determinants Answers: History of substance abuse (ETOH, street drugs, prescription drugs, etc.) Score: 13 Date Signed: 04/09/2018 10:09 AM Electronically Signed By:Carol Watters RN
--- NOTE | 2018-04-09 10:34 | GDS ---
[f rep st] DISCHARGE SUMMARY DISCHARGE DIAGNOSES: 1. Alcohol abuse. 2. Epigastric pain. 3. Severe alcoholic pancreatitis. 4. Systemic inflammatory response syndrome. 5. Obesity. 6. Fatty liver. 7. Anemia. HISTORY OF PRESENT ILLNESS: A 22-year-old female with no past medical history, presenting with epigastric pain and nausea for 3 days. She had not been able to tolerate p.o. intake. She reports drinking daily but only quantifies it as "too much." Abdominal ultrasound was notable for fatty liver. HOSPITAL COURSE: 1. Severe alcoholic pancreatitis: Lipase is greater than 9000. CT was consistent with pancreatitis. No necrosis or pseudocyst. 2. Alcohol dependence: I had a conversation with both mother and daughter. She does admit that she has a problem and is very optimistic and hopeful. She has a followup with the primary care physician at [facility] on Thursday. She was provided resources by Case Management for alcohol cessation. Patient lives with her mother, and her mom says there is no alcohol in the home. The patient will refrain from hanging out with others who drink excessively. 3. Normocytic anemia. H and H have remained stable. 4. Fatty liver disease: Secondary to obesity and alcohol. She was educated on diet. DISPOSITION: Stable for discharge home with Mother. MEDICATIONS: No new medications. DIET: Advance diet slowly. FOLLOWUP: Primary care physician in [place]. PHYSICAL EXAMINATION: VITAL SIGNS: Today, temperature 36.8, blood pressure 119 /82, heart rates in the 80s, respirations 16, 95% on room air. GENERAL: Well- appearing, obese female in no acute distress. HEENT: PERRLA. Moist mucous membranes. CV: Regular rate and rhythm. LUNGS: Clear. ABDOMEN: Soft, nontender, nondistended. Positive bowel sounds. : No Luis. MUSCULOSKELETAL : 5/5, upper and lower extremities. NEUROLOGIC: 2 through 12 intact. PSYCH: Alert and oriented x3. /[id number]/MODL MTDD
== END 2018-04-09 11:05 | disposition home or self-care (01) | DRG 282 ==
LOC: INTOOBSV 19:53 → UNDOADMIN 19:53 → OBSVTOIN 19:53 → FOB 21:25 → F3E 04-03 12:57 → UNDODISIN 04-09 11:05
PROVIDERS: ADMIT Internal Medicine; ATTEND Internal Medicine
DX: K85.20 Alcohol induced acute pancreatitis without necrosis or infection (principal); F10.20 Alcohol dependence, uncomplicated; R65.10 Systemic inflammatory response syndrome (SIRS) of non-infectious origin without acute organ dysfunction; E87.2 Acidosis; J90 Pleural effusion, not elsewhere classified; K70.0 Alcoholic fatty liver; K56.7 Ileus, unspecified; E66.9 Obesity, unspecified; E87.1 Hypo-osmolality and hyponatremia; D64.9 Anemia, unspecified
CPT/HCPCS: 97161-GP; 97165-GO; J1170; J1885; Q9967